=== PATIENT | female | born 1990 | race Caucasian/White ===

== ENCOUNTER 2016-05-05 19:07 | Emergency (ER) | payer OTHER ==
[~2016-05-05] VITALS: Ht 162.6 cm; Wt 121.0 kg
[~2016-05-05 19:07] MED LIST: FOLI-49; FOLI0.4T2; PREN1TAB49
[2016-05-05 19:11] VITALS: Ht 162.6 cm; Wt 121.0 kg
--- NOTE | 2016-05-05 19:56 | QN ---
Documentation Comment Soft Tissue ultrasound performed by me: Indication: Erythema Location: Above left eye Foreign Body: none Fluid Loculation: Small less than 0.5 cm folliculitis My independent concise history is left eye swelling. My pertinent physical exam findings are swelling to left eye with induration, no fluctuance. The plan is to add Bactrim to the Keflex already prescribed. At this point I do not believe the patient requires incision and drainage. There is no sign of orbital cellulitis. There is no proptosis. There is no pain with extraocular movements. SITA SINCLAIR MD May 05, 2016 19:56
[2016-05-05] MEDS ORDERED: IBUP-1542 PO (19:59)
[2016-05-05] MEDS ORDERED: SULF20OR7 PO (19:59)
[2016-05-05] MEDS ORDERED: TRIMETHOPRIM/SULFAMETHOX (PO SYG) NGT ONE (20:00)
[2016-05-05 20:21] VITALS: BP 132/76; PULSE 92; RESP 18; TEMP 98
--- NOTE | 2016-05-05 22:51 | ERD ---
ER Documentation Chief Complaint Date/Time DATE: 05/05/16 TIME: 22:45 Chief Complaint left eye swelling HPI Patient is a 25-year-old female who presents to the ED with left eye swelling. She states that 2 days ago she developed swelling to her left eye. She states that she had a pimple on her eyebrow. She states that the swelling increased and she went to her PCP yesterday and was prescribed Keflex. However she states that today she woke up with increase in swelling in her left eye. She has difficulty opening her eyes however she is able to open her eyes. She denies fever or chills. She denies pain with moving her eyes. She states that she has had a similar type situation one year ago and was treated with antibiotics. She denies pain to the site. She denies headache or dizziness. She denies drainage. She denies ear pain. She denies chest pain, cough or shortness of breath. She denies abdominal pain, nausea, vomiting or diarrhea. She states that she has been taking Keflex for 2 days, started yesterday. ROS All systems reviewed and are negative except as per history of present illness. Medications Home Meds Active Scripts Ibuprofen* (Motrin*) 600 Mg Tab, 600 MG PO Q6, #30 TAB Prov:FLORIAN MCCONNELL PA-C 05/05/16 Sulfamethoxazole/Trimethoprim (Sulfatrim 800-160 mg/20 ml Yulisa) 800-160 mg/20 mL Susp, 20 ML PO BID for 7 Days, BOTTLE Prov:FLORIAN MCCONNELL PA-C 05/05/16 Reported Medications Folic Acid* (Folic Acid*) 0.4 Mg Tablet 11/11/09 Vits W-Ca,Fe,Fa(<1MG) () 1 Tab Tablet 11/11/09 Folic Acid* (Folic Acid*) 1 Mg Tablet 11/10/09 Vits W-Ca,Fe,Fa(<1MG) () 1 Tab Tablet 11/10/09 Folic Acid* (Folic Acid*) 0.4 Mg Tablet 11/10/09 Vits W-Ca,Fe,Fa(<1MG) () 1 Tab Tablet 11/10/09 Allergies Allergies: Coded Allergies: No Known Drug Allergy (Verified Allergy, Mild, 11/10/09) PMhx/Soc History of Surgery: Yes (cyst reomval from neck and r ankle sx) Hx Alcohol Use: Yes (socially) Hx Substance Use: No Hx Tobacco Use: No Smoking Status: Never smoker Physical Exam Vitals Vital Signs Date Time Temp Pulse Resp B/P Pulse Ox O2 Delivery O2 Flow Rate FiO2 05/05/16 20:21 98.0 92 18 132/76 98 Room Air 05/05/16 19:11 99.6 108 20 147/80 98 Physical Exam GENERAL: Well-developed, well-nourished female. Appears in no acute distress. HEAD: Normocephalic, atraumatic. EYES: Pupils are equally reactive bilaterally. EOMs grossly intact. No conjunctival erythema. left eye has swelling around the periorbital area. no pain with EOM. area of swelling is located on eyebrow and under eyebrow with induration, no fluctuance. no drainage. ENT: Moist mucous membranes. No uvula deviation. No kissing tonsils. No exudates. NECK: Supple. No lymphadenopathy or thyromegaly. No meningismus. negative kernig. negative brudinski. LUNG: Clear to auscultation bilaterally. No rhonchi, wheezing, rales or coarse breath sounds. HEART: Regular rate and rhythm. No murmurs, rubs or gallops. NEUROLOGIC: Alert and oriented. Moving all four extremities. 5/5 strength in all extremities. Normal speech. Steady gait. SKIN: Normal color. Warm and dry. No rashes or lesions. Capillary refill < 2 seconds Results 24 hrs Current Medications Medications (Trade) Dose Ordered Sig/Maryanne Route PRN Reason Start Time Stop Time Status Last Admin Dose Admin Trimethoprim/ Sulfamethoxazole (Bactrim Susp) 20 ml ONCE ONCE NGT 05/05/16 20:00 05/05/16 20:01 DC 05/05/16 20:08 Procedures/MDM ER COURSE: I kept the patient and/or family informed of laboratory and diagnostic imaging results throughout the emergency room course. EKG, MONITORS, & DIAGNOSTIC IMAGING: Bedside ultrasound. Dr. milner performed bedside ultrasound. MEDICATIONS: Bactrim 20 ml given in the ED. MEDICAL DECISION MAKING: Dr. Milner examined patient at bedside. This is a 25-year-old who presents with left eye swelling 2 days. Vital signs were reviewed. Patient is afebrile. Patient is not hypoxic. Patient is not toxic or ill-appearing. Patient likely has periorbital cellulitis. Low suspicion for acute angle closure glaucoma, retinal detachment, arterial occlusion, hemorrhage, fracture, foreign body, ruptured globe, orbital cellulitis. Patient does not have proptosis or pain with EOMs. Dr. Milner did a bedside soft tissue ultrasound of the left eye. No foreign bodies were present and a 0.5 cm fluid loculation was visible. Patient did not need incision and drainage at this time. Low suspicion for necrotizing fasciitis, SJS, toxic epidermal necrolysis, Kawasaki, erythema multiforme, gangrene, scarlet fever, meningococcemia, sepsis, anaphylaxis. I also do not think a CT scan was warranted at this time as the infection was very superficial. DISCHARGE: At this time, patient is stable for discharge and outpatient management with no new complaints during the ER course. Patient was sent home with Bactrim. Patient already has Keflex as prescribed yesterday and will continue the Bactrim and Keflex simultaneously. Ibuprofen was also given to patient for inflammation. Patient to return to the ED for recheck.. Patient will be discharged home with instructions to recheck for new or worsening symptoms such as fever, nausea, weakness, LOC and to follow up with primary care in the next 1 -2 days. Patient was advised to return to the ER for any new or worsening symptoms. Plan was discussed and patient and/or family understands and agrees. Home instructions were given. Departure Diagnosis: Primary Impression: Cellulitis Site of cellulitis: periorbital Laterality: left Qualified Code: L03.213 - Periorbital cellulitis of left eye Condition: Stable Patient Instructions: Cellulitis, Facial Additional Instructions: Call your primary care doctor TOMORROW for an appointment during the next 1-2 days.See the doctor sooner or return here if your condition worsens before your appointment time. FLORIAN MCCONNELL PA-C May 05, 2016 22:51
== END 2016-05-05 20:23 | disposition home or self-care (01) ==
LOC: FTE 19:07
DX: L03.213 Periorbital cellulitis (principal)
CPT/HCPCS: Z7502; Z7610; 99283

== ENCOUNTER 2016-06-20 18:57 | Emergency (ER) | payer OTHER ==
[~2016-06-20] VITALS: Ht 167.6 cm; Wt 121.0 kg
[~2016-06-20 18:57] MED LIST changes: +IBUP-1542 PO; +SULF20OR7 PO
[2016-06-20 19:41] VITALS: Ht 167.6 cm; Wt 121.0 kg
[2016-06-20] MEDS ORDERED: LIDOCAINE 1% (MDV) 20 ML INJ SC ONE (20:30)
[2016-06-20] MEDS ORDERED: ACET1TAB40 PO (21:05)
--- NOTE | 2016-06-20 21:07 | ERD ---
ER Documentation Chief Complaint Date/Time DATE: 06/20/16 TIME: 21:05 Chief Complaint Abscess in the left chin HPI 26-year-old female presents with 2-3 day history of worsening redness and pain in her left chin. She denies any fevers. Started with a pimple. She did express a small amount of pus. Patient was given a prescription of clindamycin and Bactrim by primary doctor she has not filled it yet and wanted a second opinion. ROS All systems reviewed and are negative except as per history of present illness. Medications Home Meds Active Scripts Acetaminophen with Codeine (Acetaminophen-Cod #3 Tablet) 1 Each Tablet, 1 TAB PO Q6H Y for PAIN, #10 TAB Prov:DIEGO OSORIO MD 06/20/16 Ibuprofen* (Motrin*) 600 Mg Tab, 600 MG PO Q6, #30 TAB Prov:FLORIAN MCCONNELL PA-C 05/05/16 Sulfamethoxazole/Trimethoprim (Sulfatrim 800-160 mg/20 ml Yulisa) 800-160 mg/20 mL Susp, 20 ML PO BID for 7 Days, BOTTLE Prov:FLORIAN MCCONNELL PA-C 05/05/16 Reported Medications Folic Acid* (Folic Acid*) 0.4 Mg Tablet 11/11/09 Vits W-Ca,Fe,Fa(<1MG) () 1 Tab Tablet 11/11/09 Folic Acid* (Folic Acid*) 1 Mg Tablet 11/10/09 Vits W-Ca,Fe,Fa(<1MG) () 1 Tab Tablet 11/10/09 Folic Acid* (Folic Acid*) 0.4 Mg Tablet 11/10/09 Vits W-Ca,Fe,Fa(<1MG) () 1 Tab Tablet 11/10/09 Allergies Allergies: Coded Allergies: No Known Drug Allergy (Verified Allergy, Mild, 11/10/09) PMhx/Soc Medical and Surgical Hx: pt denies Medical Hx History of Surgery: Yes (cyst reomval from neck and r ankle sx) Hx Alcohol Use: Yes (socially) Hx Substance Use: No Hx Tobacco Use: No Smoking Status: Never smoker Physical Exam Vitals Vital Signs Date Time Temp Pulse Resp B/P Pulse Ox O2 Delivery O2 Flow Rate FiO2 06/20/16 19:41 98.9 118 18 133/86 100 Physical Exam Const: [] Alert, [id number]. Head: Atraumatic Eyes: Normal Conjunctiva ENT: Normal External Ears, Nose and Mouth. Neck: Full range of motion..~ No meningismus. Resp: Clear to auscultation bilaterally Cardio: Regular rate and rhythm, no murmurs Abd: Soft, non tender, non distended. Normal bowel sounds Skin: No petechiae or rashes. There is approximately 3 cm area of induration and redness with slight fluctuance centrally on the chin. Back: No midline or flank tenderness Ext: No cyanosis, or edema Neur: Awake and alert Psych: Normal Mood and Affect Results 24 hrs Current Medications Medications (Trade) Dose Ordered Sig/Maryanne Route PRN Reason Start Time Stop Time Status Last Admin Dose Admin Lidocaine (Xylocaine 1% (Mdv) 20 ml) 20 ml ONCE ONCE SC 06/20/16 20:30 06/20/16 20:31 DC Procedures/MDM Patient requested a test was negative. Procedure note-the chin was prepped with Betadine. 3 cc of lidocaine was used for local infiltration with sterile technique. #11 scalpel was used to incise the wound. A small amount of pus was expressed. Loculations were broken up with a probe. Approximately 4 cm of quarter-inch gauze was used to pack the wound and the wound was dressed. Patient tolerated procedure well. Patient was given Bactrim double strength and Keflex by mouth she was given ibuprofen as well per Patient will be discharged home with instructions to continue antibiotics as prescribed by primary doctor and recheck in 2 days for gauze removal. She will be given a prescription of Tylenol 3 for pain. There is no evidence of significant cellulitis of the face or sepsis or airway obstruction. Departure Diagnosis: Primary Impression: Abscess Condition: Stable Patient Instructions: Abscess, Incision And Drainage Additional Instructions: Wound check in 2 days for gauze removal. Recheck sooner for worsening redness, fevers, new symptoms. Take medicine as prescribed by primary doctor. DIEGO OSORIO MD Jun 20, 2016 21:07
[2016-06-20] MEDS ORDERED: CEPHALEXIN 500 MG CAP PO ONE (21:30)
[2016-06-20] MEDS ORDERED: IBUPROFEN 600 MG TAB PO ONE (21:30)
[2016-06-20] MEDS ORDERED: TRIMETHOPRIM/SULFAMETHOX (DS) TAB PO ONE (21:30)
[2016-06-20] MEDS ORDERED: UDTYLC PO (21:45)
[2016-06-20 21:56] VITALS: PULSE 79; TEMP 98.9
== END 2016-06-20 21:57 | disposition home or self-care (01) ==
LOC: FTE 18:57
DX: L02.01 Cutaneous abscess of face (principal)
CPT/HCPCS: 10061; Z7502; Z7610

== ENCOUNTER 2016-06-22 18:36 | Emergency (ER) | payer OTHER ==
[~2016-06-22] VITALS: Ht 167.6 cm; Wt 121.5 kg
[~2016-06-22 18:36] MED LIST changes: +UDTYLC PO
[2016-06-22 19:18] VITALS: Ht 167.6 cm; Wt 121.5 kg
[2016-06-22] MEDS ORDERED: CEPH250S33 PO (20:02)
[2016-06-22] MEDS ORDERED: IBUP800T25 PO (20:03)
[2016-06-22] MEDS ORDERED: IBUP100O10 PO (20:04)
--- NOTE | 2016-06-22 21:49 | ERD ---
ER Documentation Chief Complaint Date/Time DATE: 06/22/16 TIME: 21:43 Chief Complaint wound check; I&D on sunday; no fevers or chills HPI 26-year-old female with no significant past medical history presents to the ED for a wound check. States that she got a abscess on her chin drained 2 days ago. Reports that she is taking Bactrim that was prescribed by her primary care physician. States that she has been taking Tylenol and codeine with slight relief of her pain. Denies any nausea, vomiting, headache, facial pain, numbness or tingling, dizziness, fever, chills. ROS All systems reviewed and are negative except as per history of present illness. Medications Home Meds Active Scripts Ibuprofen (Ibuprofen) 100 Mg/5 Ml Oral.susp, 15 ML PO Q6H Y for PAIN AND OR ELEVATED TEMP, #4 OZ Prov:KULDEEP PILLAI PA-C 06/22/16 Cephalexin* (Cephalexin* Susp) 250 Mg/5 Ml Susp.recon, 10 ML PO Q8 for 7 Days Prov:KULDEEP PILLAI PA-C 06/22/16 Acetaminophen-Codeine* (Tylenol-Codeine* Liq) [id number] Elix, 5 ML PO Q6H Y for PAIN, #4 OZ Prov:FLORIAN MCCONNELL PA-C 06/20/16 Ibuprofen* (Motrin*) 600 Mg Tab, 600 MG PO Q6, #30 TAB Prov:FLORIAN MCCONNELL PA-C 05/05/16 Sulfamethoxazole/Trimethoprim (Sulfatrim 800-160 mg/20 ml Yulisa) 800-160 mg/20 mL Susp, 20 ML PO BID for 7 Days, BOTTLE Prov:FLORIAN MCCONNELL PA-C 05/05/16 Reported Medications Folic Acid* (Folic Acid*) 0.4 Mg Tablet 11/11/09 Vits W-Ca,Fe,Fa(<1MG) () 1 Tab Tablet 11/11/09 Folic Acid* (Folic Acid*) 1 Mg Tablet 11/10/09 Vits W-Ca,Fe,Fa(<1MG) () 1 Tab Tablet 11/10/09 Folic Acid* (Folic Acid*) 0.4 Mg Tablet 11/10/09 Vits W-Ca,Fe,Fa(<1MG) () 1 Tab Tablet 11/10/09 Allergies Allergies: Coded Allergies: No Known Drug Allergy (Verified Allergy, Mild, 11/10/09) PMhx/Soc History of Surgery: Yes (cyst reomval from neck and r ankle sx) Hx Alcohol Use: Yes (socially) Hx Substance Use: No Hx Tobacco Use: No Physical Exam Vitals Vital Signs Date Time Temp Pulse Resp B/P Pulse Ox O2 Delivery O2 Flow Rate FiO2 06/22/16 19:18 98.7 105 18 132/80 97 Physical Exam Const: [id number], well-nourished. In no acute distress. Head: Atraumatic, normocephalic Eyes: Normal Conjunctiva without injection ENT: Normal external ear, nose and mouth. Neck: Full range of motion. No meningismus. Resp: Clear to auscultation bilaterally. No wheezing, rhonchi, rales, or crackles. No accessory muscle use. No retractions. Cardio: Regular rate and rhythm, no murmurs Skin: No petechiae or rashes Back: No midline tenderness. No CVA tenderness. 3 cm area on the left side of the chin with packing noted on the 1 cm incision site. No surrounding erythema , edema, purulent discharge, bleeding, fluctuance, induration noted. Ext: No cyanosis, or edema. Cap refill less than 2 seconds. Distal pulses intact bilaterally. Neur: Awake and alert. Normal gait and coordination. Muscle strength 5/5. Sensation intact bilaterally. Psych: Normal Mood and Affect Procedures/MDM This is a 26-year-old female with no significant past medical history presents the ED for a wound check. Patient is afebrile and nontoxic-appearing. Patient has normal vital signs. No signs of cellulitis, deep space infection, Wilmar's angina, retropharyngeal abscess, sepsis, peritonsillar abscess, or other emergent conditions. Patient states that she can only take liquid forms of medication, therefore ibuprofen will be prescribed for patient's pain. Reports that she is already taking Bactrim, I will also prescribe patient Keflex for coverage of possible strep. Discharge medications: Ibuprofen, Keflex Follow up with primary care physician in 1-2 days. Instructed patient to return to the ED sooner for any worsening symptoms. Patient's questions were answered. Patient understood and agreed with discharge plan. Patient discharged stable. Departure Diagnosis: Primary Impression: Encounter for wound re-check Condition: Stable Patient Instructions: Wound Care Referrals: SHAWNA NEUMANN (PCP) Additional Instructions: FOLLOW UP WITH YOUR PRIMARY CARE PHYSICIAN TOMORROW.Return to this facility if you are not improving as expected. KULDEEP PILLAI PA-C Jun 22, 2016 21:49
== END 2016-06-22 20:03 | disposition home or self-care (01) ==
LOC: E/R 18:36
DX: Z48.01 Encounter for change or removal of surgical wound dressing (principal)
CPT/HCPCS: 99283

== ENCOUNTER 2016-11-10 15:47 | Emergency (ER) | payer OTHER ==
[~2016-11-10] VITALS: Wt 115.0 kg
[~2016-11-10 15:47] MED LIST changes: +CEPH250S33 PO; +IBUP100O10 PO
--- NOTE | 2016-11-10 16:41 | ERD ---
ER Documentation Chief Complaint Date/Time DATE: 11/10/16 TIME: 16:40 Chief Complaint COLD SYMPTOMS X 1 WEEK HPI 26-year-old female comes in with cough, sore throat, runny nose for the past week. She comes in with a productive cough, with yellow sputum. No hemoptysis , no chest pain or shortness breath. ROS All systems reviewed and are negative except as per history of present illness. Medications Home Meds Active Scripts Ibuprofen* (Motrin*) 600 Mg Tab, 600 MG PO Q6, #30 TAB Prov:JACQUELYN BANUELOS PA-C 11/10/16 Azithromycin* (Zithromax*) 250 Mg Tablet, 250 MG PO .ZPACK DIRECTED, #6 TAB TAKE 500 MG (2 TABS) THE FIRST DAY THEN 250 MG (1 TAB) DAYS 2-5 Prov:JACQUELYN BANUELOS PA-C 11/10/16 Ibuprofen (Ibuprofen) 100 Mg/5 Ml Oral.susp, 15 ML PO Q6H Y for PAIN AND OR ELEVATED TEMP, #4 OZ Prov:KULDEEP PILLAI PA-C 06/22/16 Cephalexin* (Cephalexin* Susp) 250 Mg/5 Ml Susp.recon, 10 ML PO Q8 for 7 Days Prov:KULDEEP PILLAI PA-C 06/22/16 Acetaminophen-Codeine* (Tylenol-Codeine* Liq) [id number] Elix, 5 ML PO Q6H Y for PAIN, #4 OZ Prov:FLORIAN MCCONNELL PA-C 06/20/16 Ibuprofen* (Motrin*) 600 Mg Tab, 600 MG PO Q6, #30 TAB Prov:FLORIAN MCCONNELL PA-C 05/05/16 Sulfamethoxazole/Trimethoprim (Sulfatrim 800-160 mg/20 ml Yulisa) 800-160 mg/20 mL Susp, 20 ML PO BID for 7 Days, BOTTLE Prov:FLORIAN MCCONNELL PA-C 05/05/16 Reported Medications Folic Acid* (Folic Acid*) 0.4 Mg Tablet 11/11/09 Vits W-Ca,Fe,Fa(<1MG) () 1 Tab Tablet 11/11/09 Folic Acid* (Folic Acid*) 1 Mg Tablet 11/10/09 Vits W-Ca,Fe,Fa(<1MG) () 1 Tab Tablet 11/10/09 Folic Acid* (Folic Acid*) 0.4 Mg Tablet 11/10/09 Vits W-Ca,Fe,Fa(<1MG) () 1 Tab Tablet 11/10/09 Allergies Allergies: Coded Allergies: No Known Drug Allergy (Verified Allergy, Mild, 11/10/09) PMhx/Soc History of Surgery: Yes (cyst reomval from neck and r ankle sx) Anesthesia Reaction: No Hx Neurological Disorder: No Hx Respiratory Disorders: No Hx Cardiac Disorders: No Hx Psychiatric Problems: No Hx Miscellaneous Medical Probl: No Hx Alcohol Use: Yes (socially) Hx Substance Use: No Hx Tobacco Use: No Smoking Status: Never smoker Physical Exam Vitals Vital Signs Date Time Temp Pulse Resp B/P Pulse Ox O2 Delivery O2 Flow Rate FiO2 11/10/16 15:58 98.0 101 18 147/80 99 Physical Exam General: Well-developed, well-nourished. The patient appears in no acute distress. HEENT: Head is normocephalic, atraumatic. No scleral icterus. TMs normal, oropharynx clear Neck: Supple. Nontender. Lungs: Clear to auscultation. Normal air movement. Heart: Regular rate and rhythm. S1 and S2 are normal. No murmurs, gallops, or rubs. Abdomen: Nondistended. Extremities: No clubbing or cyanosis. Moving extremities x 4. No weakness. Neurologic: Alert and oriented 3. No focal deficits. Normal speech and gait. Skin: Normal turgor. No rash or lesions. Procedures/MDM Chest X-ray 1V Interpreted by me: Soft Tissue: No acute abnormalities Bones: No acute abnormalities Mediastinum/Cardiac Silhouette/Lungs: No acute abnormalities The patient is a 26-year-old female who comes in with an acute bronchitis. The patient has a differential diagnosis of a viral upper respiratory infection, bacterial upper respiratory infection, bronchitis, pneumonia, pharyngitis, laryngitis, epiglottitis, croup, pneumonia. Patient has a normal pulmonary examination, clear breath sounds, normal pulse oximetry, with no corrective measures needed at this time. Fluids, rest, antipyretics were encouraged. Departure Diagnosis: Primary Impression: Cough Condition: Good JACQUELYN BANUELOS PA-C Nov 10, 2016 16:41
[2016-11-10] MEDS ORDERED: IBUP-1542 PO (17:47)
[2016-11-10] MEDS ORDERED: AZIT250T94 PO (17:47)
--- NOTE | 2016-11-10 18:05 | RADRPT ---
PROCEDURE: XR Chest. CLINICAL INDICATION: Cough TECHNIQUE: Single frontal view of the chest was obtained COMPARISON: None FINDINGS: The heart and mediastinum are within normal limits. The lungs are clear. There is no pleural effusion or pneumothorax. RPTAT: AA IMPRESSION: No acute disease. .Dimas Rosado MD, Date Time Electronically viewed and signed by .Dimas Rosado MD, on 11/10/2016 18:04 .S/
== END 2016-11-10 19:06 | disposition home or self-care (01) ==
LOC: FTE 15:47
DX: R05 Cough (principal)
CPT/HCPCS: 71010

== ENCOUNTER 2017-03-20 14:15 | Emergency (ER) | payer OTHER ==
[~2017-03-20] VITALS: Ht 162.6 cm; Wt 124.1 kg
[~2017-03-20 14:15] MED LIST changes: +AZIT250T94 PO
[2017-03-20 14:33] VITALS: Ht 162.6 cm; Wt 124.1 kg
[2017-03-20] MEDS ORDERED: SOD CHLORIDE 0.9% 1,000 ML IV STA ×2 (16:18→18:15)
[2017-03-20] MEDS ORDERED: ONDANSETRON 4 MG INJ IV STA (16:18)
[2017-03-20 17:27] LABS: BASOPHILS % 0.3 % (0.0-2.0); EOSINOPHILS % 0.1 % (0.0-7.0); HEMATOCRIT 45.7 % (37.0-47.0); HEMOGLOBIN 15.6 g/dl (12.0-16.0); LYMPHOCYTES # 1.6 10^3/ul (0.8-2.9); LYMPHOCYTES % 20.7 % (15.0-51.0); MEAN CORPUSCULAR HEMOGLOBIN 30.4 pg (29.0-33.0); MEAN CORPUSCULAR HGB CONC 34.1 g/dl (32.0-37.0); MEAN CORPUSCULAR VOLUME 89.1 fl (82.0-101.0); MEAN PLATELET VOLUME 11.2 fl (7.4-10.4); MONOCYTE # 0.8 10^3/ul (0.3-0.9); MONOCYTES % 9.7 % (0.0-11.0); NEUTROPHIL # 5.4 10^3/ul (1.6-7.5); NEUTROPHILS % 68.8 % (39.0-77.0); PLATELET COUNT 237 10^3/UL (140-415); RED BLOOD COUNT 5.13 10^6/ul (4.20-5.40); RED CELL DISTRIBUTION WIDTH 12.6 % (11.5-14.5); WHITE BLOOD COUNT 7.9 10^3/ul (4.8-10.8)
[2017-03-20 18:02] LABS: ALBUMIN 4.5 g/dl (3.3-4.9); ALBUMIN/GLOBULIN RATIO 0.95; BILIRUBIN,INDIRECT 1.1 mg/dl (0-1.1); BILIRUBIN,TOTAL 1.1 mg/dl (0.2-1.3); CALCIUM 9.7 mg/dl (8.4-10.2); CREATININE 0.86 mg/dl (0.44-1.00); POTASSIUM 3.7 mmol/L (3.5-5.1); TOTAL PROTEIN 9.2 g/dl (6.1-8.1)
[2017-03-20 18:10] LABS: URINE BLOOD (Dip) POC 1+ (NEGATIVE)
--- NOTE | 2017-03-20 18:11 | ERD ---
ER Documentation Chief Complaint Chief Complaint N/V SINCE YESTERDAY WITH FEVER HPI 26-year-old female is here complaining of nausea and diarrhea since yesterday. No vomiting. No cough. No sore throat. No fever. No dysuria hematuria or urinary frequency. Her last menstrual period was in January but she states she is irregular so this could be normal for her. No blood in her stool. ROS All systems reviewed and are negative except as per history of present illness. Medications Home Meds Active Scripts Ondansetron (Ondansetron Odt) 4 Mg Tab.rapdis, 4 MG PO Q6H Y for NAUSEA AND/OR VOMITING, #20 TAB Prov:VANCE CHISHOLM PA-C 03/20/17 Loperamide Hcl* (Imodium*) 2 Mg Capsule, 2 MG PO .AFTER EA LOOSE BM Y for DIARRHEA, #20 TAB Prov:VANCE CHISHOLM PA-C 03/20/17 Ibuprofen* (Motrin*) 600 Mg Tab, 600 MG PO Q6, #30 TAB Prov:JACQUELYN BANUELOS PA-C 11/10/16 Azithromycin* (Zithromax*) 250 Mg Tablet, 250 MG PO .ZPACK DIRECTED, #6 TAB TAKE 500 MG (2 TABS) THE FIRST DAY THEN 250 MG (1 TAB) DAYS 2-5 Prov:JACQUELYN BANUELOS PA-C 11/10/16 Ibuprofen (Ibuprofen) 100 Mg/5 Ml Oral.susp, 15 ML PO Q6H Y for PAIN AND OR ELEVATED TEMP, #4 OZ Prov:KULDEEP PILLAI PA-C 06/22/16 Cephalexin* (Cephalexin* Susp) 250 Mg/5 Ml Susp.recon, 10 ML PO Q8 for 7 Days Prov:KULDEEP PILLAI PA-C 06/22/16 Acetaminophen-Codeine* (Tylenol-Codeine* Liq) [id number] Elix, 5 ML PO Q6H Y for PAIN, #4 OZ Prov:FLORIAN MCCONNELL PA-C 06/20/16 Ibuprofen* (Motrin*) 600 Mg Tab, 600 MG PO Q6, #30 TAB Prov:FLORIAN MCCONNELL PA-C 05/05/16 Sulfamethoxazole/Trimethoprim (Sulfatrim 800-160 mg/20 ml Yulisa) 800-160 mg/20 mL Susp, 20 ML PO BID for 7 Days, BOTTLE Prov:JAYESHFLORIAN CLARK 05/05/16 Reported Medications Folic Acid* (Folic Acid*) 0.4 Mg Tablet 11/11/09 Vits W-Ca,Fe,Fa(<1MG) () 1 Tab Tablet 11/11/09 Folic Acid* (Folic Acid*) 1 Mg Tablet 11/10/09 Vits W-Ca,Fe,Fa(<1MG) () 1 Tab Tablet 11/10/09 Folic Acid* (Folic Acid*) 0.4 Mg Tablet 11/10/09 Vits W-Ca,Fe,Fa(<1MG) () 1 Tab Tablet 11/10/09 Allergies Allergies: Coded Allergies: No Known Drug Allergy (Verified Allergy, Mild, 03/20/17) PMhx/Soc Medical and Surgical Hx: pt denies Medical Hx History of Surgery: Yes (cyst reomval from neck and r ankle sx) Anesthesia Reaction: No Hx Neurological Disorder: No Hx Respiratory Disorders: No Hx Cardiac Disorders: No Hx Psychiatric Problems: No Hx Miscellaneous Medical Probl: No Hx Alcohol Use: Yes (socially) Hx Substance Use: No Hx Tobacco Use: No Smoking Status: Never smoker FmHx Family History: No diabetes Physical Exam Vitals Vital Signs Date Time Temp Pulse Resp B/P Pulse Ox O2 Delivery O2 Flow Rate FiO2 03/20/17 17:02 98.1 111 18 118/73 98 Room Air 03/20/17 14:33 98.9 134 16 133/81 97 Physical Exam INITIAL VITAL SIGNS: Reviewed by me GENERAL: Awake, alert and oriented x 4, well appearing, nontoxic, speaking in full sentences. No acute distress HEAD: Atraumatic NECK: Supple. No masses. Full range of motion. No meningismus. No midline tenderness. THROAT: No tonilar erythema or edema. No exudates. Uvula midline. No kissing tonsils. RESPIRATORY: Clear to auscultation bilaterally. Symmetric chest wall rise. No wheezing or rales. No accessory muscle use. CV: Regular rate and rhythm. No murmurs, rubs, or gallops. ABDOMEN: Soft, non-distended. Nontender. Negative [place]. Negative McBurneys point tenderness. No CVA tenderness bilaterally. No guarding. No rebound. Result Diagram: 03/20/17 1650 03/20/17 1650 Results 24 hrs Laboratory Tests Test 03/20/17 16:50 03/20/17 18:10 White Blood Count 7.910^3/ul Red Blood Count 5.1310^6/ul Hemoglobin 15.6g/dl Hematocrit 45.7% Mean Corpuscular Volume 89.1fl Mean Corpuscular Hemoglobin 30.4pg Mean Corpuscular Hemoglobin Concent 34.1g/dl Red Cell Distribution Width 12.6% Platelet Count 30072^3/UL Mean Platelet Volume 11.2fl Neutrophils % 68.8% Lymphocytes % 20.7% Monocytes % 9.7% Eosinophils % 0.1% Basophils % 0.3% Nucleated Red Blood Cells % 0.0/100WBC Neutrophils # 5.410^3/ul Lymphocytes # 1.610^3/ul Monocytes # 0.810^3/ul Eosinophils # 0.010^3/ul Basophils # 0.010^3/ul Nucleated Red Blood Cells # 0.010^3/ul Sodium Level 141mmol/L Potassium Level 3.7mmol/L Chloride Level 99mmol/L Carbon Dioxide Level 29mmol/L Anion Gap 17 Blood Urea Nitrogen 16mg/dl Creatinine 0.86mg/dl Glucose Level 108mg/dl Calcium Level 9.7mg/dl Total Bilirubin 1.1mg/dl Direct Bilirubin 0.00mg/dl Indirect Bilirubin 1.1mg/dl Aspartate Amino Transf (AST/SGOT) 33IU/L Alanine Aminotransferase (ALT/SGPT) 43IU/L Alkaline Phosphatase 68IU/L Total Protein 9.2g/dl Albumin 4.5g/dl Globulin 4.70g/dl Albumin/Globulin Ratio 0.95 Lipase 48U/L Bedside Urine pH (LAB) 5.5 Bedside Urine Protein (LAB) 1+ Bedside Urine Glucose (UA) Negative Bedside Urine Ketones (LAB) 2+ Bedside Urine Blood 1+ Bedside Urine Nitrite (LAB) Negative Bedside Urine Leukocyte Esterase (L Negative Current Medications Medications (Trade) Dose Ordered Sig/Maryanne Route PRN Reason Start Time Stop Time Status Last Admin Dose Admin Sodium Chloride (NS) 1,000 ml @ 1,000 mls/hr Q1H STAT IV 03/20/17 16:18 03/20/17 17:17 DC 03/20/17 16:46 Ondansetron HCl 4 mg 4 mg ONCE STAT IV 03/20/17 16:18 03/20/17 16:19 DC 03/20/17 16:45 Sodium Chloride (NS) 1,000 ml @ 1,000 mls/hr Q1H STAT IV 03/20/17 18:15 03/20/17 19:14 03/20/17 18:33 Procedures/MDM Patient presents with nausea and diarrhea since yesterday. The differential diagnosis includes but is not limited to appendicitis, cholelithiasis, cholecystitis, pancreatitis, hepatitis, gastritis, peptic ulcer disease, bowel obstruction, diverticulitis, renal disease including stones, torsion, AAA, pyelonephritis, and others. She is afebrile. In triage her pulse rate was 134 however when I checked it in the exam room it seemed to be within normal limits and after IV fluids and Zofran she felt much better and the pulse had improved to 95. Laboratory analysis shows no evidence of acute emergent abnormality. No evidence of significant leukocytosis suggesting systemic infection or severe anemia. No evidence of acute renal or liver failure, no evidence of severe alkalosis or acidosis. Urine negative for and urine is negative for infection. Patient is discharged with Imodium and Zofran. Patient counseled regarding my diagnostic impression and care plan. Prior to discharge all questions answered. Pt agrees with treatment plan and understands strict return precautions. Pt is instructed to follow up with primary care provider within 24- 48 hours. Precautionary instructions provided including instructions to return to the ER if not improving or for any worsening or changing symptoms or concerns. Departure Diagnosis: Primary Impression: Abdominal pain Condition: Stable VANCE CHISHOLM PA-C Mar 20, 2017 18:11
[2017-03-20] MEDS ORDERED: LOPE2CAP PO (18:13)
[2017-03-20] MEDS ORDERED: ONDA4TAB14 PO (18:13)
[2017-03-20 18:34] VITALS: BP 140/91; PULSE 116; RESP 18; TEMP 98.1
== END 2017-03-20 18:52 | disposition home or self-care (01) ==
LOC: FTE 14:15
DX: R10.9 Unspecified abdominal pain (principal)
CPT/HCPCS: 36415; 80053; 81003; 83690; 85025; 96374; J2405; J7030; Z7502

== ENCOUNTER 2017-09-17 20:05 | Emergency (ER) | END 2017-09-17 23:40 | disposition home or self-care (01) ==